=== PATIENT | female | born 1990 | race African-American/Black ===

== ENCOUNTER 2019-11-03 10:49 | Emergency (ER) | payer OTHER ==
[~2019-11-03] VITALS: Ht 154.9 cm; Wt 118.0 kg
[2019-11-03 11:10] VITALS: BP 137/75
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
[2019-11-03 12:01] LABS: BILIRUBIN,URINE NEGATIVE (NEG); CLARITY,URINE CLOUDY; COLOR,URINE AMBER; NITRITE,URINE NEGATIVE (NEG); PROTEIN,URINE NEGATIVE (NEG-TRACE)
[2019-11-03 12:14] LABS: BACTERIA,URINE MODERATE /HPF (0-FEW); RBC,URINE 0 /HPF (0-2); SQUAMOUS EPITHELIAL CELL,UR MANY /LPF
[2019-11-03 12:30] LABS: U PREG PATIENT NEGATIVE (NEG)
[2019-11-03] MEDS: IBUPROFEN 200 MG TABLET. PO ONE (12:43)
== END 2019-11-03 12:45 | disposition home or self-care (01) ==
LOC: ER 10:49
DX: R10.30 Lower abdominal pain, unspecified (principal); J45.909 Unspecified asthma, uncomplicated; F12.90 Cannabis use, unspecified, uncomplicated; Z98.890 Other specified postprocedural states
CPT/HCPCS: 81001; 81025; 87086; 99284

== ENCOUNTER 2020-06-18 14:26 | Emergency (ER) | payer OTHER | END 2020-06-18 16:16 | disposition left against medical advice (07) | LOC: ER 14:26 | DX: M79.606 Pain in leg, unspecified (principal); Z53.21 Procedure and treatment not carried out due to patient leaving prior to being seen by health care provider ==